=== PATIENT | female | born 1990 | race Two or more races ===

== ENCOUNTER 2016-06-11 14:14 | Emergency (ER) | payer OTHER ==
[2016-06-11 14:27] VITALS: BP 100/77; PULSE 94; TEMP 98; BMI 35.4
[2016-06-11] MEDS ORDERED: TETANUS AND DIPHTHERIA TOXOID 0.5 ML DISP.SYRIN IM ONE (14:31)
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
[2016-06-11] MEDS ORDERED: DIPHTH,PERTUSS(ACELL),TET 0.5 ML DISP.SYRIN IM ONE (14:37)
[2016-06-11] MEDS ORDERED: AMOX TR/POT CLAV 875MG/125MG TABLETS (FP) PO ONE (14:51)
[2016-06-11] MEDS ORDERED: AMOX TR/POT CLAV 875MG/125MG TABLETS (FP) ONE (14:52)
== END 2016-06-11 15:00 | disposition home or self-care (01) ==
LOC: FER 14:14
PROC: 3E0234Z Introduction of Serum, Toxoid and Vaccine into Muscle, Percutaneous Approach (ICD-10-PCS; principal; 2016-06-11)
DX: S00.83XA Contusion of other part of head, initial encounter (principal); S41.151A Open bite of right upper arm, initial encounter; Y04.1XXA Assault by human bite, initial encounter; Y93.89 Activity, other specified; Y92.159 Unspecified place in reform school as the place of occurrence of the external cause; Y99.0 Civilian activity done for income or pay
CPT/HCPCS: 90715; 99282-25